=== PATIENT | female | born 1955 | race Caucasian/White ===

== ENCOUNTER 2016-11-17 13:22 | Inpatient (IN) | payer OTHER ==
--- NOTE | 2016-11-17 13:59 | EDPRACDOC ---
- History of Present Illness HPI: PT PRESENTS AFTER BEING FOUND TO HAVE HYPOTENSION WITH PALLOR AT [facility]. <Pramod Cheney - Last Filed: 11/17/16 13:40> <Trell Gao - Last Filed: 11/17/16 22:13> - General Information Stated Complaint: HYPOTENSION Time Seen by Provider: 11/17/16 13:25 Home Medications: Home Medications Sertraline HCl [Zoloft] 150 mg PO DAILY 10/28/15 Amlodipine [Norvasc] 10 mg PO DAILY #30 tab 01/30/16 Carvedilol [Coreg] 25 mg PO BID 05/16/16 Bupropion HCl [Wellbutrin] 75 mg PO DAILY 06/25/16 Cholecalciferol (Vitamin D3) [Vitamin D3] 2,000 unit PO DAILY 06/25/16 Cyanocobalamin (Vitamin B-12) [Vitamin B-12] 500 mcg SL DAILY 06/25/16 Haloperidol [Haldol] 0.5 mg PO TID PRN 06/25/16 Levothyroxine [Synthroid, Levoxyl] 100 mcg PO DAILY 06/25/16 Isosorbide Mononitrate [Isosorbide Mononitrate ER] 120 mg PO DAILY 07/26/16 PEG-Electrolytes (Miralax) [Miralax] 17 gm PO DAILY #1 each 07/28/16 Albuterol Sulfate [Ventolin Hfa] 2 puff INH QID PRN 08/16/16 Atorvastatin Calcium [Lipitor] 20 mg PO QHS 08/16/16 Furosemide 20 mg PO QAM 08/16/16 Aspirin [Aspirin EC] 81 mg PO DAILY 08/27/16 Omeprazole 40 mg PO BID 08/27/16 Acetaminophen [Mapap] 650 mg PO Q6H PRN 10/26/16 Exenatide Microspheres [Bydureon Pen] 2 mg SQ WEEKLY 10/26/16 Divalproex Sodium [Depakote] 125 mg PO BID 11/17/16 Docusate-Senna Concentrate [Senokot S or Joselyn Colace] 2 each PO HS 11/17/16 Ferrous Fumarate [Ferrocite] 324 mg PO DAILY 11/17/16 Lisinopril [Prinivil] 5 mg PO DAILY 11/17/16 Allergies/Adverse Reactions: Allergies Allergy/AdvReac Type Severity Reaction Status Date / Time morphine Allergy Difficulty Verified 11/17/16 14:26 Breathing ondansetron HCl Allergy Unknown Verified 11/17/16 14:26 [From Zofran (as hydrochloride)] Penicillins Allergy Unknown/See Verified 11/17/16 14:26 Comments Sulfa (Sulfonamide Allergy Unknown Verified 11/17/16 14:26 Antibiotics) sulfamethoxazole Allergy Unknown/See Verified 11/17/16 14:26 [From Bactrim] Comments trimethoprim [From Bactrim] Allergy Unknown/See Verified 11/17/16 14:26 Comments ED Past Medical History - History Reviewed Yes Nurses notes reviewed and agree except as marked - Patient Medical History Neurological History: Reports: Dementia. Denies: Epilepsy Cardiac History: Reports: Coronary Artery Disease, Hypertension, Congestive Heart Failure (Ejection fraction on last echocardiogram September 2015 30%), Cardiac Catheterization, Hypercholesterolemia, Internal Defibrillator (AICD placed for cardiomyopathy and ejection fraction of 30), Pacemaker (AICD implanted due to CHF/cardiomyopathy.), Cardiomyopathy (Congestive cardiomyopathy requiring AICD placement), Valvular Heart Disease Respiratory History: Reports: COPD, Pneumonia GI/ History: Reports: Renal Disease (CKD-3), Gastroesophageal Reflux, Ulcer ( jejeunal ulcer), Diverticulosis (Suspected but unable to pull up her old CT of abdomen Neil), Pancreatitis Musculoskeletal History: Reports: Arthritis, Osteoarthritis Psychological History: Reports: Anxiety. Denies: Depression, Substance Use Disorder Systemic History: Reports: Cancer (fallopian tube malignancy), Anemia, Diabetes , Hypothyroidism Surgical History: Reports: Hysterectomy, Cardiac Catheterization, Tonsillectomy/ Adnoidectomy (1967), Other (AICD) Date of Last Chemotherapy Date: Sep 2010 - Family Medical History Reports: Hypertension (father), Diabetes (mother), Cancer (sister - cervical ca) , Cardiac Disorders (father-CHF, sister- CAD, mother- AAA). Denies: Stroke - Social Medical History Smoking Status: Light tobacco smoker (less than 5/day) Social History: Denies: Substance Use Disorder Lives In: Home <Pramod Cheney - Last Filed: 11/17/16 13:40> EDM Review of Systems - Review of Systems ROS Negative Except as Marked: Yes All systems reviewed and were negative except as marked Constitutional: Fatigue, Weakness. negative: Fever Respiratory: Shortness of Breath. negative: Hemoptysis Cardiovascular: negative: Chest Pain Gastrointestinal: negative: Diarrhea, Melena, Nausea, Pain, Vomiting Genitourinary: negative: Hematuria <Pramod Cheney - Last Filed: 11/17/16 13:40> - Physical Exam Constitutional: Alert Oriented to: Time, Person, Place Last recorded Vital Signs: Oxygen Pulse Oxygen Saturation O2 Device Oxygen Flow Rate Fraction of Inspired Oxygen ( FIO2) - HEENT Head: negative: Deformity, Laceration Eye Exam: Pale Conjunctiva. negative: Conjunctival Injection Nose: negative: Congestion, Discharge Neck: negative: Limited ROM - Respiratory/Cardiovascular Respiratory: Normal - CTA. negative: Accessory Muscle Use, Diminished, Tachypnea Cardiovascular: negative: Bradycardia, Tachycardia, Irregular - GI Auscultation: Normal Palpation: Normal Tenderness: Non tender - Musculoskeletal Extremities: Radial Pulse (PALPABLE) - Integumentary Skin: Warm, Dry. negative: Rash - Neurologic Memory Impaired: Normal Motor Function: Normal Mood Description: Anxious Thought: Coherent Perception: Normal <Pramod Cheney - Last Filed: 11/17/16 13:40> - Physical Exam Last recorded Vital Signs: Last Vital Signs Temp 97.5 F 11/17/16 22:08 Pulse 73 11/17/16 22:08 Resp 18 11/17/16 22:08 BP 172/72 11/17/16 22:08 Pulse Ox 99 11/17/16 22:08 Oxygen Pulse Oxygen Saturation 97 O2 Device Room Air Oxygen Flow Rate Fraction of Inspired Oxygen ( FIO2) <Trell Gao - Last Filed: 11/17/16 22:13> - EKG EKG #1 EKG Time: 13:57 -: Yes EKG interpreted by me Rate: bpm: 69 Rhythm: NSR Block: None ST: Nonsp <Pramod Cheney - Last Filed: 11/17/16 13:40> - Results 11/17/16 18:00 11/17/16 14:10 WBC 5.5 xk/uL (3.8-10.8) 11/17/16 14:10 RBC 1.54 xM/uL (4.20-5.40) L 11/17/16 14:10 Hgb 5.7 g/dL (12.0-16.0) L* D 11/17/16 18:00 Hct 17.0 % (36-47) L 11/17/16 18:00 MCV 93 fL (81-99) 11/17/16 14:10 MCH 30.5 pg (27-32) 11/17/16 14:10 MCHC 32.6 g/dl (33-36) L 11/17/16 14:10 RDW 16.1 % (11.5-14.5) H 11/17/16 14:10 Plt Count 182 xk/uL (130-400) 11/17/16 14:10 MPV 7.2 fL (7.4-10.4) L 11/17/16 14:10 Neut % (Auto) Cancelled 11/17/16 14:10 Lymph % (Auto) Cancelled 11/17/16 14:10 Weber % (Auto) Cancelled 11/17/16 14:10 Eos % (Auto) Cancelled 11/17/16 14:10 Baso % (Auto) Cancelled 11/17/16 14:10 Absolute Neuts (auto) Cancelled 11/17/16 14:10 Absolute Lymphs (auto) Cancelled 11/17/16 14:10 Seg Neuts % (Manual) 75 % (45-76) 11/17/16 14:10 Band Neutrophils % 0 % (0-5) 11/17/16 14:10 Lymphocytes % (Manual) 22 % (17-44) 11/17/16 14:10 Monocytes % (Manual) 1 % (0-10) 11/17/16 14:10 Eosinophils % (Manual) 1 % (0-5) 11/17/16 14:10 Basophils % (Manual) 1 % (0-2) 11/17/16 14:10 Absolute Neutrophils 4.13 xk/uL (1.7-8.2) 11/17/16 14:10 Absolute Lymphocytes 1.21 xk/uL (0.65-4.75) 11/17/16 14:10 Platelet Estimate Norm (NORMAL) 11/17/16 14:10 RBC Morphology 1+ aniso 11/17/16 14:10 PT 10.9 SEC (9.2-11.2) 11/17/16 14:10 INR 1.1 11/17/16 14:10 APTT 22.6 SEC (22-35) 11/17/16 14:10 Sodium 137 mEq/L (137-146) 11/17/16 14:10 Potassium 4.1 mEq/L (3.5-5.1) 11/17/16 14:10 Chloride 110 mEq/L (98-107) H 11/17/16 14:10 Carbon Dioxide 21 mMOL/L (22-33) L 11/17/16 14:10 Anion Gap 10 mEq/L (8-16) 11/17/16 14:10 BUN 60 MG/DL (7-17) H 11/17/16 14:10 Creatinine 2.90 MG/DL (0.52-1.04) H 11/17/16 14:10 Estimated GFR (MDRD) 16 mL/min (>=60) L 11/17/16 14:10 Glucose 119 MG/DL (70-99) H 11/17/16 14:10 POC Capillary Glucose 110 MG/DL (70-99) H 11/17/16 20:22 Calculated Osmolality 282 MOs/Kg (270-290) 11/17/16 14:10 Lactic Acid 1.3 mEq/L (0.7-2.1) 11/17/16 14:10 Calcium 8.1 MG/DL (8.4-10.2) L 11/17/16 14:10 Corrected Calcium 9.6 MG/DL (8.4-10.2) 11/17/16 14:10 Total Bilirubin 0.2 MG/DL (0.2-1.3) 11/17/16 14:10 AST 42 IU/L (14-36) H 11/17/16 14:10 ALT 39 IU/L (9-52) 11/17/16 14:10 Alkaline Phosphatase 69 IU/L (55-165) 11/17/16 14:10 Creatine Kinase 399 IU/L (30-134) H 11/17/16 14:10 CK-MB (CK-2) 6.6 ng/mL (0-4.5) H 11/17/16 14:10 Troponin I 0.01 ng/mL (<.04) 11/17/16 20:40 Total Protein 5.3 G/DL (6.3-8.2) L 11/17/16 14:10 Albumin 2.5 G/DL (3.5-5.0) L 11/17/16 14:10 Urine Color Yellow 11/17/16 14:42 Urine Clarity Clear 11/17/16 14:42 Urine pH 5.0 (5.0-8.0) 11/17/16 14:42 Ur Specific [place] 1.005 (1.003-1.035) 11/17/16 14:42 Urine Protein 3+ (NEG/TRACE) H 11/17/16 14:42 Urine Glucose (UA) 1+ (NEGATIVE) H 11/17/16 14:42 Urine Ketones Neg (NEGATIVE) 11/17/16 14:42 Urine Occult Blood 1+ (NEG/TRACE) H 11/17/16 14:42 Urine Nitrite Neg (NEGATIVE) 11/17/16 14:42 Urine Bilirubin Neg (NEGATIVE) 11/17/16 14:42 Urine Urobilinogen <2.0 MG/DL (0-1) 11/17/16 14:42 Ur Leukocyte Esterase Neg (NEGATIVE) 11/17/16 14:42 Urine RBC 0-2 (0-5) 11/17/16 14:42 Urine WBC 2-5 (0-5) 11/17/16 14:42 Ur Epithelial Cells 1+ 11/17/16 14:42 Urine Bacteria Few (NEG/FEW) 11/17/16 14:42 Urine Mucus Occ (NEG/OCC) 11/17/16 14:42 Blood Type A POSITIVE 11/17/16 15:00 Antibody Screen Negative 11/17/16 15:00 Crossmatch See Detail 11/17/16 15:00 Lab Results 11/17/16 11/17/16 11/17/16 15:00 14:42 14:10 WBC RBC Hgb Hct MCV MCH MCHC RDW Plt Count MPV Neut % (Auto) Lymph % (Auto) Weber % (Auto) Eos % (Auto) Baso % (Auto) Absolute Neuts (auto) Absolute Lymphs (auto) Seg Neuts % (Manual) Band Neutrophils % Lymphocytes % (Manual) Monocytes % (Manual) Eosinophils % (Manual) Basophils % (Manual) Absolute Neutrophils Absolute Lymphocytes Platelet Estimate RBC Morphology PT 10.9 INR 1.1 APTT 22.6 Sodium Potassium Chloride Carbon Dioxide Anion Gap BUN Creatinine Estimated GFR (MDRD) Glucose Calculated Osmolality Lactic Acid Calcium Corrected Calcium Total Bilirubin AST ALT Alkaline Phosphatase Creatine Kinase CK-MB (CK-2) Troponin I Total Protein Albumin Urine Color Yellow Urine Clarity Clear Urine pH 5.0 Ur Specific [place] 1.005 Urine Protein 3+ H Urine Glucose (UA) 1+ H Urine Ketones Neg Urine Occult Blood 1+ H Urine Nitrite Neg Urine Bilirubin Neg Urine Urobilinogen <2.0 Ur Leukocyte Esterase Neg Urine RBC 0-2 Urine WBC 2-5 Ur Epithelial Cells 1+ Urine Bacteria Few Urine Mucus Occ Blood Type A POSITIVE Antibody Screen Negative Crossmatch See Detail 11/17/16 11/17/16 11/17/16 14:10 14:10 14:10 WBC 5.5 RBC 1.54 L Hgb 4.7 L* Hct 14.4 L MCV 93 MCH 30.5 MCHC 32.6 L RDW 16.1 H Plt Count 182 MPV 7.2 L Neut % (Auto) Cancelled Lymph % (Auto) Cancelled Weber % (Auto) Cancelled Eos % (Auto) Cancelled Baso % (Auto) Cancelled Absolute Neuts (auto) Cancelled Absolute Lymphs (auto) Cancelled Seg Neuts % (Manual) 75 Band Neutrophils % 0 Lymphocytes % (Manual) 22 Monocytes % (Manual) 1 Eosinophils % (Manual) 1 Basophils % (Manual) 1 Absolute Neutrophils 4.13 Absolute Lymphocytes 1.21 Platelet Estimate Norm RBC Morphology 1+ aniso PT INR APTT Sodium 137 Potassium 4.1 Chloride 110 H Carbon Dioxide 21 L Anion Gap 10 BUN 60 H Creatinine 2.90 H Estimated GFR (MDRD) 16 L Glucose 119 H Calculated Osmolality 282 Lactic Acid 1.3 Calcium 8.1 L Corrected Calcium 9.6 Total Bilirubin 0.2 AST 42 H ALT 39 Alkaline Phosphatase 69 Creatine Kinase 399 H CK-MB (CK-2) 6.6 H Troponin I 0.02 Total Protein 5.3 L Albumin 2.5 L Urine Color Urine Clarity Urine pH Ur Specific [place] Urine Protein Urine Glucose (UA) Urine Ketones Urine Occult Blood Urine Nitrite Urine Bilirubin Urine Urobilinogen Ur Leukocyte Esterase Urine RBC Urine WBC Ur Epithelial Cells Urine Bacteria Urine Mucus Blood Type Antibody Screen Crossmatch <Trell Gao - Last Filed: 11/17/16 22:13> <Parmod Cheney - Last Filed: 11/17/16 13:40> - Departure Disposition: Admit IP To This Hospital <Trell Gao - Last Filed: 11/17/16 22:13> - Departure Condition: Fair Final Diagnosis: GI bleed Qualifiers: GI bleed type/associated pathology: unspecified gastrointestinal hemorrhage type Qualified Code(s): K92.2 - Gastrointestinal hemorrhage, unspecified
[2016-11-17 14:23] LABS: MPV 7.2 fL (7.4-10.4)
[2016-11-17 14:34] LABS: BLOOD UREA NITROGEN 60 MG/DL (7-17); CALC CORRECTED 9.6 MG/DL (8.4-10.2); CALCIUM 8.1 MG/DL (8.4-10.2); CALCULATED OSMOLALITY 282 MOs/Kg (270-290); CHLORIDE 110 mEq/L (98-107); CPK TOTAL WITH POSSIBLE MB 399 IU/L (30-134); GLUCOSE 119 MG/DL (70-99); PARTIAL THROMB. TIME 22.6 SEC (22-35); PT-INR 1.1; SODIUM LEVEL 137 mEq/L (137-146); TOTAL PROTEIN 5.3 G/DL (6.3-8.2)
[2016-11-17 14:49] LABS: CPKMB 6.6 ng/mL (0-4.5)
--- NOTE | 2016-11-17 14:50 | DIRPT ---
CLINICAL DATA: Hypotension. EXAM: PORTABLE CHEST 1 VIEW COMPARISON: 08/27/2016 FINDINGS: AICD in place. Heart size and vascularity are normal. Lungs are clear. No osseous abnormality. IMPRESSION: No active disease. Electronically Signed By: Rambo Cedillo M.D. On: 11/17/2016 14:47
[2016-11-17 15:11] LABS: LEUKOCYTES/URINE NEG (NEGATIVE); NITRITE/URINE NEG (NEGATIVE); RBC/URINE 0-2 (0-5); URINE OCCULT BLOOD 1+ (NEG/TRACE)
[2016-11-17 15:41] LABS: SEG NEUTROPHIL 75 % (45-76); TOTAL CELL COUNT 100
[2016-11-17] MEDS ORDERED: ACETAMINOPHEN 325 MG/TAB TABLET PO PRN ×2 (17:06→17:12)
[2016-11-17] MEDS ORDERED: Aluminum;Magnesium;Simethicone 30 ML UDC PO PRN (17:06)
[2016-11-17] MEDS ORDERED: MAGNESIUM HYDROXIDE 30 ML BOTTLE PO PRN (17:06)
[2016-11-17] MEDS ORDERED: SODIUM CHLORIDE 0.9% 3 ML FLUSH FLUSH PRN (17:06)
[2016-11-17] MEDS ORDERED: PROMETHAZINE 25 MG/ML VIAL IV PRN (17:06)
[2016-11-17] MEDS ORDERED: HALOPERIDOL 0.5 MG TAB PO PRN (17:12)
[2016-11-17] MEDS ORDERED: ALBUTEROL 6.7 GM MDI INH PRN (17:12)
[2016-11-17] MEDS ORDERED: EXENATIDE MICROSPHERES 2 MG SQ SCH (17:15)
--- NOTE | 2016-11-17 17:17 | HISTPHYS ---
- Chief Complaint weakness; confusion; pt has a recent hx of blood transfusions; + fatigue - Medical History Cardiac History: Reports: Cardiac Catheterization Psychological History: Denies: Depression - Surgical History Reports: Hysterectomy, Cardiac Catheterization, Tonsillectomy/Adnoidectomy (1967 ), Other (AICD) - Medictions/Allergies Allergies morphine Allergy (Verified 11/17/16 14:26) Difficulty Breathing ondansetron HCl [From Zofran (as hydrochloride)] Allergy (Verified 11/17/16 14: 26) Unknown Penicillins Allergy (Verified 11/17/16 14:26) Unknown/See Comments Sulfa (Sulfonamide Antibiotics) Allergy (Verified 11/17/16 14:26) Unknown sulfamethoxazole [From Bactrim] Allergy (Verified 11/17/16 14:26) Unknown/See Comments trimethoprim [From Bactrim] Allergy (Verified 11/17/16 14:26) Unknown/See Comments Home Medications Sertraline HCl [Zoloft] 150 mg PO DAILY 10/28/15 Amlodipine [Norvasc] 10 mg PO DAILY #30 tab 01/30/16 Carvedilol [Coreg] 25 mg PO BID 05/16/16 Bupropion HCl [Wellbutrin] 75 mg PO DAILY 06/25/16 Cholecalciferol (Vitamin D3) [Vitamin D3] 2,000 unit PO DAILY 06/25/16 Cyanocobalamin (Vitamin B-12) [Vitamin B-12] 500 mcg SL DAILY 06/25/16 Haloperidol [Haldol] 0.5 mg PO TID PRN 06/25/16 Levothyroxine [Synthroid, Levoxyl] 100 mcg PO DAILY 06/25/16 Isosorbide Mononitrate [Isosorbide Mononitrate ER] 120 mg PO DAILY 07/26/16 PEG-Electrolytes (Miralax) [Miralax] 17 gm PO DAILY #1 each 07/28/16 Albuterol Sulfate [Ventolin Hfa] 2 puff INH QID PRN 08/16/16 Atorvastatin Calcium [Lipitor] 20 mg PO QHS 08/16/16 Furosemide 20 mg PO QAM 08/16/16 Aspirin [Aspirin EC] 81 mg PO DAILY 08/27/16 Omeprazole 40 mg PO BID 08/27/16 Acetaminophen [Mapap] 650 mg PO Q6H PRN 10/26/16 Exenatide Microspheres [Bydureon Pen] 2 mg SQ WEEKLY 10/26/16 Divalproex Sodium [Depakote] 125 mg PO BID 11/17/16 Docusate-Senna Concentrate [Senokot S or Joselyn Colace] 2 each PO HS 11/17/16 Ferrous Fumarate [Ferrocite] 324 mg PO DAILY 11/17/16 Lisinopril [Prinivil] 5 mg PO DAILY 11/17/16 - Family History Reports: Hypertension (father), Diabetes (mother), Cancer (sister - cervical ca) , Cardiac Disorders (father-CHF, sister- CAD, mother- AAA). Denies: Stroke - Social History Smoking Status: Never smoker - Physical Exam Vital Signs: Initial Vitals Temperature 97.5 F 11/17/16 13:40 Pulse Rate 60 11/17/16 13:40 Respiratory Rate 18 11/17/16 13:40 Blood Pressure 142/66 11/17/16 13:40 Pulse Oxygen Saturation 99 11/17/16 13:40 - Focused CV Perfusion Exam Vital Signs: Last Vital Signs Temp 97.7 F 11/17/16 16:31 Pulse 72 11/17/16 16:31 Resp 18 11/17/16 16:31 BP 148/66 11/17/16 16:31 Pulse Ox 97 11/17/16 16:31
--- NOTE | 2016-11-17 17:18 | HISTPHYS ---
- Chief Complaint weakness; confusion; pt has a recent hx of blood transfusions; + fatigue - History of Present Illness Patient presents the emergency department after brief being found hypotensive and pale at [facility]. She has a long history arterial venous malformations and requires frequent blood transfusions. Up until today she has received 19 at units of blood since July 2016. She will require 5 units today for a total of 24 units since July 2016. - Medical History Cardiac History: Reports: Cardiac Catheterization Respiratory History: Reports: No Significant History GI/ History: Reports: No Significant History, PMH GI Yes/No Other (frequent gi bleeding requiring transfusions) Musculoskeletal History: Reports: No Significant History Systemic History: Reports: Anemia Neurological History: Reports: No Significant History Psychological History: Denies: Depression - Surgical History Reports: Hysterectomy, Cardiac Catheterization, Tonsillectomy/Adnoidectomy (1966 ), Other () - Medictions/Allergies Allergies morphine Allergy (Verified 11/17/16 14:26) Difficulty Breathing ondansetron HCl [From Zofran (as hydrochloride)] Allergy (Verified 11/17/16 14: 26) Unknown Penicillins Allergy (Verified 11/17/16 14:26) Unknown/See Comments Sulfa (Sulfonamide Antibiotics) Allergy (Verified 11/17/16 14:26) Unknown sulfamethoxazole [From Bactrim] Allergy (Verified 11/17/16 14:26) Unknown/See Comments trimethoprim [From Bactrim] Allergy (Verified 11/17/16 14:26) Unknown/See Comments Current Medication List: Reviewed Home Medications Sertraline HCl [Zoloft] 150 mg PO DAILY 10/28/15 Amlodipine [Norvasc] 10 mg PO DAILY #30 tab 01/30/16 Carvedilol [Coreg] 25 mg PO BID 05/16/16 Bupropion HCl [Wellbutrin] 75 mg PO DAILY 06/25/16 Cholecalciferol (Vitamin D3) [Vitamin D3] 2,000 unit PO DAILY 06/25/16 Cyanocobalamin (Vitamin B-12) [Vitamin B-12] 500 mcg SL DAILY 06/25/16 Haloperidol [Haldol] 0.5 mg PO TID PRN 06/25/16 Levothyroxine [Synthroid, Levoxyl] 100 mcg PO DAILY 06/25/16 Isosorbide Mononitrate [Isosorbide Mononitrate ER] 120 mg PO DAILY 07/26/16 PEG-Electrolytes (Miralax) [Miralax] 17 gm PO DAILY #1 each 07/28/16 Albuterol Sulfate [Ventolin Hfa] 2 puff INH QID PRN 08/16/16 Atorvastatin Calcium [Lipitor] 20 mg PO QHS 08/16/16 Furosemide 20 mg PO QAM 08/16/16 Aspirin [Aspirin EC] 81 mg PO DAILY 08/27/16 Omeprazole 40 mg PO BID 08/27/16 Acetaminophen [Mapap] 650 mg PO Q6H PRN 10/26/16 Exenatide Microspheres [Bydureon Pen] 2 mg SQ WEEKLY 10/26/16 Divalproex Sodium [Depakote] 125 mg PO BID 11/17/16 Docusate-Senna Concentrate [Senokot S or Joselyn Colace] 2 each PO HS 11/17/16 Ferrous Fumarate [Ferrocite] 324 mg PO DAILY 11/17/16 Lisinopril [Prinivil] 5 mg PO DAILY 11/17/16 - Family History Reports: Hypertension (father), Diabetes (mother), Cancer (sister - cervical ca) , Cardiac Disorders (father-CHF, sister- CAD, mother- AAA). Denies: Stroke - Social History Travel Outside of [place] in the Last 3 Months?: No Smoking Status: Never smoker Social History: Denies: Alcohol Use, Substance Use Disorder - Review of Systems Constitutional: Fatigue, Weakness Eyes: No Symptoms Reported (No blurry vision, visual changes, eye pain, or eye redness.) Ears: No Symptoms Reported (No ear pain or discharge) Nose: No Symptoms Reported (No nasal discharge/congestion or bleeding) Respiratory: No Symptoms Reported (No cough, wheezing, or shortness of breath.) Cardiovascular: No Symptoms Reported (No chest pain or palpitations.) Gastrointestinal: Hematochezia Genitourinary: No Symptoms Reported (No dysuria or hematuria.) Neurological: No Symptoms Reported (No headache, dizziness, seizures, or focal weakness.) Musculoskeletal:: No Symptoms Reported Integumentary: No Symptoms Reported (no rashes or lesions) Allergic/Immunologic: No Symptoms Reported (no rashes or lesions) Hematologic: Anemia Endocrine: No Symptoms Reported (No thyroid issues, polyuria, or polydipsia.) Psychiatric: No Symptoms Reported (Fully oriented, with normal and appropriate affect.) - Physical Exam Vital Signs: Initial Vitals Temperature 97.5 F 11/17/16 13:40 Pulse Rate 60 11/17/16 13:40 Respiratory Rate 18 11/17/16 13:40 Blood Pressure 142/66 11/17/16 13:40 Pulse Oxygen Saturation 99 11/17/16 13:40 Constitutional: Alert. negative: Well nourished, Well appearing Oriented to: Time, Person, Place - HEENT Head: Normal (normocephalic, atraumatic.), Other (No cervical lymphadenopathy. No supraclavicular lymphadenopathy. Neck: No palpable mass, supple , trachea midline.) Eye: Pale Conjunctiva Oropharynx: Normal (Pharynx: Moist without exudate,Gums-no swelling, No oropharyngeal lesions or erythema, Mucous membranes are dry.) Nose: No Symptoms Reported (septum midline, Nares patent, without discharge or bleeding.) Respiratory: Normal - CTA (Clear to auscultation bilaterally. No wheezing, rales , rhonchi. Chest wall movements are symmetric. No use of accessory muscles to breathe.) Cardiovascular: Normal (RRR , Normal S1, S2. No murmurs, rubs, or gallops. PMI non-displaced. Carotids: no carotid bruits. No bradycardia or tachycardia. DP pulses 2+ bilaterally.) - GI Auscultation: Normal (normal active sounds) Palpation: Normal (Soft,non distended,nontender. No hepatosplenomegaly.) Tenderness: Non tender (No rebound or guarding) Triplett's Sign: Negative - Musculoskeletal Back: Normal (Non-Tender) Extremities: Normal (Normal tone, DP pulses 2+ bilaterally, No cyanosis or edema bilaterally, FROM bilaterally.) - Integumentary Skin: Pale Lymphatics: Normal (No cervical lymphadenopathy. No supraclavicular lymphadenopathy.) - Neurologic Memory Impaired: Normal Motor Function: Normal (Motor 5/5 throughout.Normal tone, Pulses 2+ No cyanosis or edema, FROM) Cranial Nerve: Normal (CN II-XII intact sensation, strength 5/5) Cerebellar: Normal (Babinski: toes downgoing bilaterally. Intact Finger to nose. Sensory grossly intact to light touch. Intact rapid alternating movements bilaterally. No pronator drift.) Mood Description: Normal (Fully oriented. Normal and appropriate affect.) Perception: Normal (Normal and appropriate affect.) - Focused CV Perfusion Exam Vital Signs: Last Vital Signs Temp 97.7 F 11/17/16 16:31 Pulse 72 11/17/16 16:31 Resp 18 11/17/16 16:31 BP 148/66 11/17/16 16:31 Pulse Ox 97 11/17/16 16:31 - Lab Results Laboratory Results - last 24 hr 11/17/16 11/17/16 11/17/16 14:10 14:10 14:10 WBC 5.5 RBC 1.54 L Hgb 4.7 L* Hct 14.4 L MCV 93 MCH 30.5 MCHC 32.6 L RDW 16.1 H Plt Count 182 MPV 7.2 L Neut % (Auto) Cancelled Lymph % (Auto) Cancelled [place] % (Auto) Cancelled Eos % (Auto) Cancelled Baso % (Auto) Cancelled Absolute Neuts (auto) Cancelled Absolute Lymphs (auto) Cancelled Seg Neuts % (Manual) 75 Band Neutrophils % 0 Lymphocytes % (Manual) 22 Monocytes % (Manual) 1 Eosinophils % (Manual) 1 Basophils % (Manual) 1 Absolute Neutrophils 4.13 Absolute Lymphocytes 1.21 Platelet Estimate Norm RBC Morphology 1+ aniso PT INR APTT Sodium 137 Potassium 4.1 Chloride 110 H Carbon Dioxide 21 L Anion Gap 10 BUN 60 H Creatinine 2.90 H Estimated GFR (MDRD) 16 L Glucose 119 H Calculated Osmolality 282 Lactic Acid 1.3 Calcium 8.1 L Corrected Calcium 9.6 Total Bilirubin 0.2 AST 42 H ALT 39 Alkaline Phosphatase 69 Creatine Kinase 399 H CK-MB (CK-2) 6.6 H Troponin I 0.02 Total Protein 5.3 L Albumin 2.5 L Urine Color Urine Clarity Urine pH Ur Specific [place] Urine Protein Urine Glucose (UA) Urine Ketones Urine Occult Blood Urine Nitrite Urine Bilirubin Urine Urobilinogen Ur Leukocyte Esterase Urine RBC Urine WBC Ur Epithelial Cells Urine Bacteria Urine Mucus Blood Type Antibody Screen Crossmatch 11/17/16 11/17/16 11/17/16 14:10 14:42 15:00 WBC RBC Hgb Hct MCV MCH MCHC RDW Plt Count MPV Neut % (Auto) Lymph % (Auto) [place] % (Auto) Eos % (Auto) Baso % (Auto) Absolute Neuts (auto) Absolute Lymphs (auto) Seg Neuts % (Manual) Band Neutrophils % Lymphocytes % (Manual) Monocytes % (Manual) Eosinophils % (Manual) Basophils % (Manual) Absolute Neutrophils Absolute Lymphocytes Platelet Estimate RBC Morphology PT 10.9 INR 1.1 APTT 22.6 Sodium Potassium Chloride Carbon Dioxide Anion Gap BUN Creatinine Estimated GFR (MDRD) Glucose Calculated Osmolality Lactic Acid Calcium Corrected Calcium Total Bilirubin AST ALT Alkaline Phosphatase Creatine Kinase CK-MB (CK-2) Troponin I Total Protein Albumin Urine Color Yellow Urine Clarity Clear Urine pH 5.0 Ur Specific [place] 1.005 Urine Protein 3+ H Urine Glucose (UA) 1+ H Urine Ketones Neg Urine Occult Blood 1+ H Urine Nitrite Neg Urine Bilirubin Neg Urine Urobilinogen <2.0 Ur Leukocyte Esterase Neg Urine RBC 0-2 Urine WBC 2-5 Ur Epithelial Cells 1+ Urine Bacteria Few Urine Mucus Occ Blood Type A POSITIVE Antibody Screen Negative Crossmatch See Detail - Diagnostic Findings PORTABLE CHEST 1 VIEW COMPARISON: 08/27/2016 FINDINGS: AICD in place. Heart size and vascularity are normal. Lungs are clear. No osseous abnormality. IMPRESSION: No active disease. Electronically Signed By: Rambo Cedillo M.D. On: 11/17/2016 14:47 - Assessment (1) Small bowel bleed requiring more than 4 units of blood in 24 hours, ICU, or surgery K92.2 - GASTROINTESTINAL HEMORRHAGE, UNSPECIFIED Acute Present on Admission: Yes Patient presents with markedly low hemoglobin and a history of congestive heart failure although her heart failure is currently well compensated she will be Um transfused 5 units of packed red blood cell and will get Lasix with each unit. Will monitor her renal function closely she does have a creatinine of 2.9 with chronic renal failure. I had an extensive discussion with Dr. Martinez regarding the patient's care in August he phoned [facility] and requested to schedule her for an appointment at [facility]. [facility] said that they would send the patient to [facility] themselves. The patient never did go to [facility]. She require specialty care available only there. He has done in upper and lower endoscopy in August and there were no findings. (2) Anemia due to acute blood loss D62 - ACUTE POSTHEMORRHAGIC ANEMIA Acute Present on Admission: Yes Patient to get 5 units of packed red blood cells today. Her hemoglobin is extremely low she feels very sick and she is extremely symptomatic. (3) Renal failure N19 - UNSPECIFIED KIDNEY FAILURE Chronic Present on Admission: Yes Patient with chronic renal failure which in part accounts for some of her anemia but not all of it. She remains heme-positive and having issues with her GI tract. In the past and has been surmised that she had arterial venous malformations but apparently that had never been proven. Attempts at outpatient evaluation at [facility] were made but the patient and needed referral from community health systems. Will check with community health systems tomorrow regarding progress of that. (4) Chronic illness R69 - ILLNESS, UNSPECIFIED Acute Present on Admission: Yes Patient wishes to be a full code this reverses her previous DNR status from January of 2016. - Plan Patient acutely and critically ill with dangerously low blood counts. Case Care Discussed with: Patient, Consultants, Nursing Staff Total Time: 85 minutes Critical Care: Yes Couseling Time (>50% in counseling/coordination): No
[2016-11-17] MEDS ORDERED: ACETAMINOPHEN 325 MG/TAB TABLET PO ONE (18:11)
[2016-11-17] MEDS ORDERED: Vaccine Screening Complete SCH (21:00)
[2016-11-17] MEDS: DIPHENHYDRAMINE 50 MG/ML VIAL IV SCH (22:01)
[2016-11-17] MEDS: FUROSEMIDE 20 MG/2 ML VIAL IV SCH (22:01)
[2016-11-17] MEDS: ATORVASTATIN 20 MG TAB PO SCH (22:02)
[2016-11-17] MEDS: DOCUSATE-SENNA CONCENTRATE TAB PO SCH (22:02)
[2016-11-17] MEDS: DIVALPROEX SODIUM 125 MG CAP PO SCH (22:02)
[2016-11-17] MEDS: CARVEDILOL 12.5 MG TAB PO SCH (22:02)
[2016-11-17] MEDS: SODIUM CHLORIDE 0.9% 3 ML FLUSH FLUSH SCH (22:15)
[2016-11-17] MEDS: ASCORBIC ACID 500 MG TAB PO SCH (22:25)
[2016-11-18] MEDS: DIPHENHYDRAMINE 50 MG/ML VIAL IV SCH ×3 (05:16→16:18)
[2016-11-18] MEDS: FUROSEMIDE 20 MG/2 ML VIAL IV SCH ×4 (05:17→20:34)
[2016-11-18] MEDS: SODIUM CHLORIDE 0.9% 3 ML FLUSH FLUSH SCH ×2 (05:17→17:52)
[2016-11-18] MEDS: PANTOPRAZOLE 40 MG TAB PO SCH ×2 (05:17→17:52)
[2016-11-18] MEDS: FERROUS SULFATE 324 MG TAB PO SCH ×3 (08:00→17:51)
[2016-11-18] MEDS: ASCORBIC ACID 500 MG TAB PO SCH ×3 (08:00→17:51)
[2016-11-18] MEDS: DIVALPROEX SODIUM 125 MG CAP PO SCH ×2 (08:02→19:49)
[2016-11-18] MEDS: ISOSORBIDE MONONITRATE 120 MG PO SCH (08:03)
[2016-11-18] MEDS: LEVOTHYROXINE 100 MCG (0.1 MG) TAB PO SCH (08:04)
[2016-11-18] MEDS: AMLODIPINE 10 MG TAB PO SCH (08:04)
[2016-11-18] MEDS: PEG-ELECTROLYTE 17 GM PACK PO SCH (08:04)
[2016-11-18] MEDS: LISINOPRIL 5 MG TAB PO SCH (08:05)
[2016-11-18] MEDS: CYANOCOBALAMIN (Vitamin B-12) 500 MCG TABLET PO SCH (08:05)
[2016-11-18] MEDS: CARVEDILOL 12.5 MG TAB PO SCH ×2 (08:05→19:49)
[2016-11-18] MEDS: CHOLECALCIFEROL 1000 UNITS TAB PO SCH (11:38)
--- NOTE | 2016-11-18 17:27 | GENMEDPROG ---
Subjective Note: Patient reports that she was sent to [place] for a double balloon endoscopy. I am requesting these records. She was told that her bleeding problem was solved. She then presented several times since that procedure to our facility with profound anemia. Her hemoglobin yesterday was 4.7. She is in the process of receiving 5 units of packed red blood cells Notes Reviewed: Yes Events from last night noted and discussed with Clinical Staff Current Medication List: Reviewed Currently: Reports: SOB, Other (Weakness and fatigue.). Denies: Fever/Chills, Ambulating DVT Prophylaxis: Yes - Physical Examination Vital Signs and I&O: Last Vital Signs Temp 97.8 F 11/18/16 16:55 Pulse 67 11/18/16 16:55 Resp 18 11/18/16 16:55 BP 182/88 H 11/18/16 16:55 Pulse Ox 98 11/18/16 16:55 Oxygen Pulse Oxygen Saturation 98 O2 Device Room Air Oxygen Flow Rate Fraction of Inspired Oxygen ( FIO2) Intake & Output 11/15/16 11/16/16 11/17/16 11/18/16 23:59 23:59 23:59 23:59 Intake Total 500 1597 Balance 500 1597 Patient's weight 93.44 kg 96.252 kg General: Alert, Oriented x3, No acute distress, Well appearing, Well nourished HEENT: Normal (Normocephalic, atraumatic;EOMI.Sclera white, Nares patent, without discharge or bleeding. No oropharyngeal lesions or erythema. Mucous membranes are dry.) Lymphatics: Normal (No cervical lymphadenopathy. No supraclavicular lymphadenopathy.) Respiratory: Normal - CTA (Clear to auscultation bilaterally. No wheezing, rales , rhonchi. Chest wall movements are symmetric. No use of accessory muscles to breathe.) Cardiovascular: Regular rate and rhythm (No bradycardia or tachycardia), Normal S1, No Gallops,Rubs/Murmurs, Normal S2, Good Pedal Pulses (DP pulses 2+ bilaterally) GI: Normal bowel sounds (normal active sounds), Soft (non-distended), Non tender , No hepatospenomegaly, No masses Extremities/Musculoskeletal: Normal pulses (DP pulses 2+ bilaterally) Skin: Warm,Dry and Intact, No rashes, No significant lesion Neurological: Strength at 5/5 X4 ext (Motor 5/5 throughout.), Normal tone, Cranial nerves 3-12 NL ( 2-12 grossly intact.) Lab/DI/Studies Reviewed: Abnormal Lab Results 11/17/16 11/17/16 11/17/16 15:00 18:00 20:22 Hgb 5.7 L* D Hct 17.0 L POC Capillary Glucose 110 H Crossmatch See Detail - Assessment (1) Small bowel bleed requiring more than 4 units of blood in 24 hours, ICU, or surgery Acute K92.2 - GASTROINTESTINAL HEMORRHAGE, UNSPECIFIED Comment/Plan: Obtain records from [place]. Continue transfusion of blood. Dr. Martinez is consulting. (2) Anemia due to acute blood loss Acute D62 - ACUTE POSTHEMORRHAGIC ANEMIA Comment/Plan: Patient to complete 5 units of packed red blood cells today. Her hemoglobin is extremely low she feels very sick and she is extremely symptomatic. (3) Renal failure Chronic N19 - UNSPECIFIED KIDNEY FAILURE Comment/Plan: Patient with chronic renal failure which in part accounts for some of her anemia but not all of it. She remains heme-positive and having issues with her GI tract. Based on patient 's discussion with me today I do believe she may have AVMs. Awaiting records from [place]. (4) Chronic illness Acute R69 - ILLNESS, UNSPECIFIED Comment/Plan: Patient wishes to be a full code this reverses her previous DNR status from January of 2016. - Plan Continue present care. Disposition Plan: May require longterm facility. Case Care Discussed with: Patient, Consultants, Nursing Staff, Resource Management, Rotary Envelope Machine Operator Education/Counseling Given To: Patient Education/Counseling Given Regarding: Diagnosis, Treatment, Prognosis, Follow Up , Disposition Plan Total Time: 45 minutes. Critical Care: Yes Couseling Time (>50% in counseling/coordination): No
[2016-11-18] MEDS: ATORVASTATIN 20 MG TAB PO SCH (19:49)
[2016-11-18] MEDS: DOCUSATE-SENNA CONCENTRATE TAB PO SCH (19:49)
[2016-11-18] MEDS: hydrALAZINE 20 MG/ML VIAL IV PRN (22:52)
[2016-11-19] MEDS ORDERED: METOPROLOL 5 MG/5 ML SDV IV ONE (00:46)
[2016-11-19] MEDS ORDERED: hydrALAZINE 20 MG/ML VIAL IV ONE (00:46)
[2016-11-19] MEDS ORDERED: FUROSEMIDE 40 MG/4 ML VIAL IV ONE (00:47)
[2016-11-19] MEDS: PANTOPRAZOLE 40 MG TAB PO SCH ×2 (04:39→17:21)
[2016-11-19] MEDS: SODIUM CHLORIDE 0.9% 3 ML FLUSH FLUSH SCH ×2 (04:40→17:21)
[2016-11-19] MEDS: DIVALPROEX SODIUM 125 MG CAP PO SCH ×2 (08:19→23:55)
[2016-11-19] MEDS: AMLODIPINE 10 MG TAB PO SCH (08:19)
[2016-11-19] MEDS: CARVEDILOL 12.5 MG TAB PO SCH (08:19)
[2016-11-19] MEDS: ASCORBIC ACID 500 MG TAB PO SCH ×3 (08:19→17:21)
[2016-11-19] MEDS: ISOSORBIDE MONONITRATE 120 MG PO SCH (08:19)
[2016-11-19] MEDS: CHOLECALCIFEROL 1000 UNITS TAB PO SCH (08:19)
[2016-11-19] MEDS: FERROUS SULFATE 324 MG TAB PO SCH ×3 (08:20→17:21)
[2016-11-19] MEDS: LISINOPRIL 5 MG TAB PO SCH (08:20)
[2016-11-19] MEDS: CYANOCOBALAMIN (Vitamin B-12) 500 MCG TABLET PO SCH (08:20)
[2016-11-19] MEDS: LEVOTHYROXINE 100 MCG (0.1 MG) TAB PO SCH (08:23)
[2016-11-19] MEDS: PEG-ELECTROLYTE 17 GM PACK PO SCH (08:29)
--- NOTE | 2016-11-19 16:27 | GENMEDPROG ---
Subjective Note: Patient in bed responsive follows commands, weak tired and fatigued. Denies any abdominal pain nausea vomiting. Notes Reviewed: Yes Events from last night noted and discussed with Clinical Staff Current Medication List: Reviewed Currently: Reports: SOB, Reflux Sx, Other (Weakness and fatigue.). Denies: Fever/Chills, Ambulating DVT Prophylaxis: Yes - Physical Examination Vital Signs and I&O: Last Vital Signs Temp 97.7 F 11/19/16 15:37 Pulse 67 11/19/16 15:37 Resp 18 11/19/16 15:37 BP 123/68 11/19/16 15:37 Pulse Ox 98 11/19/16 15:37 Oxygen Pulse Oxygen Saturation 98 O2 Device Room Air Oxygen Flow Rate Fraction of Inspired Oxygen ( FIO2) Intake & Output 11/16/16 11/17/16 11/18/16 11/19/16 23:59 23:59 23:59 23:59 Intake Total 500 2355 360 Output Total 2650 Balance 500 2355 -2290 Patient's weight 93.44 kg 96.252 kg 93.894 kg General: Alert, Oriented x3, No acute distress, Well appearing, Well nourished HEENT: Normal (Normocephalic, atraumatic;EOMI.Sclera white, Nares patent, without discharge or bleeding. No oropharyngeal lesions or erythema. Mucous membranes are dry.), PERRLA, EOMI, Anicteric Sclera Neck: Non-tender, Normal inspection, Limited range of motion Lymphatics: Normal (No cervical lymphadenopathy. No supraclavicular lymphadenopathy.) Respiratory: Normal - CTA (Clear to auscultation bilaterally. No wheezing, rales , rhonchi. Chest wall movements are symmetric. No use of accessory muscles to breathe.), Diminished, Rhonchi Cardiovascular: Regular rate and rhythm (No bradycardia or tachycardia), Normal S1, No Gallops,Rubs/Murmurs, Normal S2, Good Pedal Pulses (DP pulses 2+ bilaterally) GI: Normal bowel sounds (normal active sounds), Soft (non-distended), Non tender , No hepatospenomegaly, No masses Extremities/Musculoskeletal: Normal pulses (DP pulses 2+ bilaterally) Skin: Warm,Dry and Intact, No rashes, No significant lesion Neurological: Strength at 5/5 X4 ext (Motor 5/5 throughout.), Normal tone, Cranial nerves 3-12 NL ( 2-12 grossly intact.) Psych/Mental Status: Anxious Lab/DI/Studies Reviewed: Allergies morphine Allergy (Verified 11/17/16 14:26) Difficulty Breathing ondansetron HCl [From Zofran (as hydrochloride)] Allergy (Verified 11/17/16 14: 26) Unknown Penicillins Allergy (Verified 11/17/16 14:26) Unknown/See Comments Sulfa (Sulfonamide Antibiotics) Allergy (Verified 11/17/16 14:26) Unknown sulfamethoxazole [From Bactrim] Allergy (Verified 11/17/16 14:26) Unknown/See Comments trimethoprim [From Bactrim] Allergy (Verified 11/17/16 14:26) Unknown/See Comments 11/19/16 04:05 11/17/16 14:10 Abnormal Lab Results 11/17/16 11/18/16 11/19/16 15:00 21:30 04:05 Hgb 10.7 L D 10.9 L Hct 30.8 L 31.6 L Crossmatch See Detail Last Vital Signs Temp 97.7 F 11/19/16 15:37 Pulse 67 11/19/16 15:37 Resp 18 11/19/16 15:37 BP 123/68 11/19/16 15:37 Pulse Ox 98 11/19/16 15:37 - Assessment (1) GI bleed Acute K92.2 - GASTROINTESTINAL HEMORRHAGE, UNSPECIFIED Qualifiers: GI bleed type/associated pathology: angiodysplasia of stomach and duodenum Qualified Code(s): K31.811 - Angiodysplasia of stomach and duodenum with bleeding Comment/Plan: Continue PPI. Patient will need to follow up with a tertiary medical center (2) Acute on chronic renal failure Acute N17.9 - ACUTE KIDNEY FAILURE, UNSPECIFIED; N18.9 - CHRONIC KIDNEY DISEASE, UNSPECIFIED Comment/Plan: Monitor renal function maintain hydration avoid any nephrotoxins. (3) Anemia due to acute blood loss Acute D62 - ACUTE POSTHEMORRHAGIC ANEMIA Comment/Plan: Improved and stable after blood transfusion. (4) Hypertension Acute I10 - ESSENTIAL (PRIMARY) HYPERTENSION Qualifiers: Hypertension type: essential hypertension Qualified Code(s): I10 - Essential (primary) hypertension Comment/Plan: Stable on meds. (5) CHF (congestive heart failure) Chronic I50.9 - HEART FAILURE, UNSPECIFIED Qualifiers: Congestive heart failure type: systolic Congestive heart failure chronicity : chronic Qualified Code(s): I50.22 - Chronic systolic (congestive) heart failure Comment/Plan: compensated (6) Dyslipidemia Chronic E78.5 - HYPERLIPIDEMIA, UNSPECIFIED Comment/Plan: Continue Lipitor Case Care Discussed with: Patient, Nursing Staff, Tissue Packer Education/Counseling Given To: Patient Education/Counseling Given Regarding: Diagnosis, Treatment, Prognosis, Follow Up Total Time: 45 min . Critical Care: No Code: 94851 (12+)
[2016-11-20] MEDS: hydrALAZINE 20 MG/ML VIAL IV PRN (00:05)
[2016-11-20] MEDS: CARVEDILOL 12.5 MG TAB PO SCH ×2 (01:40→09:18)
[2016-11-20] MEDS: ATORVASTATIN 20 MG TAB PO SCH (01:41)
[2016-11-20] MEDS: DOCUSATE-SENNA CONCENTRATE TAB PO SCH (01:41)
[2016-11-20 03:55] VITALS: BMI 35.4
[2016-11-20 05:33] LABS: AUTOMATED BASOPHIL 0.9 % (0-2); AUTOMATED LYMPH 14.5 % (17-44); AUTOMATED MONOCYTE 12.6 % (3-10); MPV 7.9 fL (7.4-10.4)
[2016-11-20 05:47] LABS: BLOOD UREA NITROGEN 44 MG/DL (7-17); CALCIUM 7.9 MG/DL (8.4-10.2); CALCULATED OSMOLALITY 270 MOs/Kg (270-290); CHLORIDE 105 mEq/L (98-107); GLUCOSE 89 MG/DL (70-99); SODIUM LEVEL 135 mEq/L (137-146)
[2016-11-20] MEDS: PANTOPRAZOLE 40 MG TAB PO SCH (06:35)
[2016-11-20] MEDS: SODIUM CHLORIDE 0.9% 3 ML FLUSH FLUSH SCH (06:35)
[2016-11-20] MEDS: CYANOCOBALAMIN (Vitamin B-12) 500 MCG TABLET PO SCH (09:18)
[2016-11-20] MEDS: LEVOTHYROXINE 100 MCG (0.1 MG) TAB PO SCH (09:18)
[2016-11-20] MEDS: LISINOPRIL 5 MG TAB PO SCH (09:18)
[2016-11-20] MEDS: ISOSORBIDE MONONITRATE 120 MG PO SCH (09:18)
[2016-11-20] MEDS: ASCORBIC ACID 500 MG TAB PO SCH (09:18)
[2016-11-20] MEDS: DIVALPROEX SODIUM 125 MG CAP PO SCH (09:18)
[2016-11-20] MEDS: AMLODIPINE 10 MG TAB PO SCH (09:18)
[2016-11-20] MEDS: FERROUS SULFATE 324 MG TAB PO SCH (09:18)
[2016-11-20] MEDS: PEG-ELECTROLYTE 17 GM PACK PO SCH (09:38)
[2016-11-20 10:58] VITALS: BP 136/68; PULSE 76; TEMP 98.2
--- NOTE | 2016-11-20 11:27 | PCM.DCS92 ---
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 Patient will need to follow up with a tertiary medical center (2) Acute on chronic renal failure Chronic N17.9 - ACUTE KIDNEY FAILURE, UNSPECIFIED; N18.9 - CHRONIC KIDNEY DISEASE, UNSPECIFIED Present on Admission: Yes Comment: Monitor renal function maintain hydration avoid any nephrotoxins. (3) Anemia due to acute blood loss Acute D62 - ACUTE POSTHEMORRHAGIC ANEMIA Present on Admission: Yes Comment: Improved and stable after blood transfusion. (4) Hypertension Acute I10 - ESSENTIAL (PRIMARY) HYPERTENSION essential hypertension I10 - Essential (primary) hypertension Comment: Stable on meds. (5) CHF (congestive heart failure) Chronic I50.9 - HEART FAILURE, UNSPECIFIED Present on Admission: Yes systolic chronic I50.22 - Chronic systolic (congestive) heart failure Comment: compensated (6) Dyslipidemia Chronic E78.5 - HYPERLIPIDEMIA, UNSPECIFIED Present on Admission: Yes Comment: Continue Lipitor Discharge Disposition: Home Discharge Condition: Improved Cognitive Discharge Status: Unimpaired Fuctional Discharge Status: Walker Assistance Physician Follow up/Referrals: Otto Velasquez II, MD [Primary Care Provider] - Listed Time O2 Device: Room Air Diet at Discharge: Heart Healthy, Low Salt, High Fiber Activity: As Tolerated, Limited, No Heavy Lifting Call Office For: Worsening Symptoms, Fever over 101 F Discontinue use of:: Alcohol, All Illegal Substances, All Types of Tobacco - DC Summary Notes Hospital Course Note:: Discharge summary on patient named ELVIRA FISH admitted to [facility] on 11/17/16 by Sally Jackman MD. Date of discharge is []. Patient was initially brought to emergency room on November 17 for evaluation of hypotension, weakness and paleness. ED workup was undertaken patient was found profoundly anemic with hemoglobin of 4.7. Patient is admitted to monitor bed in transfused with 5 units of pooled red blood cells. After blood transfusion her hemoglobin remained stable between 10 and 11. Chest x-ray showed no active disease AICD in place heart size and vascularity were normal. Outpatient regimen for chronic medical conditions was continued. Discussion was held with GI Dr. Martinez regarding patient care and recommendation was made that patient continues to follow-up with GI at tertiary medical center. It was felt that patient had recurrent GI bleed related to small bowel angiodysplasia. She has remained hemodynamically stable after blood transfusion. Her activity level was gradually advanced and she has tolerated well by the time of discharge patient is able to ambulate short distance with walker. Renal function remained at baseline. It was felt that by November 20 patient has reached maximum benefit of inpatient therapy and in clinically stable improved condition she has been discharged home to the care of stay well Total Time: 40 mi n Code: 02299 (>30min.) - Physical Exam Vital Signs: Last Vital Signs Temp 98.2 F 11/20/16 10:58 Pulse 76 11/20/16 10:58 Resp 17 11/20/16 10:58 BP 136/68 11/20/16 10:58 Pulse Ox 97 11/20/16 10:58 Oxygen Pulse Oxygen Saturation 97 O2 Device Room Air Oxygen Flow Rate Fraction of Inspired Oxygen ( FIO2) Constitutional: Alert. negative: Well nourished, Well appearing Oriented to: Time, Person, Place - HEENT Head: Normal (normocephalic, atraumatic.), Other (No cervical lymphadenopathy. No supraclavicular lymphadenopathy. Neck: No palpable mass, supple , trachea midline.) Eye: Normal, Pale Conjunctiva Oropharynx: Normal (Pharynx: Moist without exudate,Gums-no swelling, No oropharyngeal lesions or erythema, Mucous membranes are dry.) ENT EAC: Normal Nose: No Symptoms Reported (septum midline, Nares patent, without discharge or bleeding.) - Respiratory/Cardiovascular Respiratory: Normal - CTA (Clear to auscultation bilaterally. No wheezing, rales , rhonchi. Chest wall movements are symmetric. No use of accessory muscles to breathe.), Diminished, Rhonchi Cardiovascular: Normal, Systolic murmur - GI Auscultation: Normal (normal active sounds) Palpation: Normal (Soft,non distended,nontender. No hepatosplenomegaly.) Tenderness: Non tender (No rebound or guarding) Triplett's Sign: Negative Rectal Exam: Deferred - Exam Deferred: Yes - Musculoskeletal Back: Normal (Non-Tender) Extremities: Normal (Normal tone, DP pulses 2+ bilaterally, No cyanosis or edema bilaterally, FROM bilaterally.) - Integumentary Skin: Normal, Warm, Dry Lymphatics: Normal (No cervical lymphadenopathy. No supraclavicular lymphadenopathy.) - Neurologic Memory Impaired: Normal Motor Function: Normal Cranial Nerve: Normal Cerebellar: Normal (Babinski: toes downgoing bilaterally. Intact Finger to nose. Sensory grossly intact to light touch. Intact rapid alternating movements bilaterally. No pronator drift.) Mood Description: Normal (Fully oriented. Normal and appropriate affect.), Anxious Perception: Normal (Normal and appropriate affect.) - Other Exam Other Exam Findings: Allergies morphine Allergy (Verified 11/17/16 14:26) Difficulty Breathing ondansetron HCl [From Zofran (as hydrochloride)] Allergy (Verified 11/17/16 14: ) Unknown Penicillins Allergy (Verified 11/17/16 14:) Unknown/See Comments Sulfa (Sulfonamide Antibiotics) Allergy (Verified 11/17/16 14:) Unknown sulfamethoxazole [From Bactrim] Allergy (Verified 11/17/16 14:26) Unknown/See Comments trimethoprim [From Bactrim] Allergy (Verified 11/17/16 14:) Unknown/See Comments 11/20/16 04:50 11/20/16 04:50 Abnormal Lab Results 11/20/16 11/20/16 04:50 04:50 RBC 3.49 L Hgb 10.7 L Hct 31.0 L RDW 15.7 H Lymph % (Auto) 14.5 L Tompkins % (Auto) 12.6 H Sodium 135 L BUN 44 H Creatinine 3.00 H Estimated GFR (MDRD) 16 L Calcium 7.9 L Discharge Home Medication List Sertraline HCl [Zoloft] 150 mg PO DAILY 10/28/15 [History Confirmed 11/17/16] Amlodipine [Norvasc] 10 mg PO DAILY #30 tab 01/30/16 [Rx Confirmed 11/17/16] Carvedilol [Coreg] 25 mg PO BID 05/16/16 [History Confirmed 11/17/16] Bupropion HCl [Wellbutrin] 75 mg PO DAILY 06/25/16 [History Confirmed 11/17/16] Cholecalciferol (Vitamin D3) [Vitamin D3] 2,000 unit PO DAILY 06/25/16 [History Confirmed 11/17/16] Cyanocobalamin (Vitamin B-12) [Vitamin B-12] 500 mcg SL DAILY 06/25/16 [History Confirmed 11/17/16] Haloperidol [Haldol] 0.5 mg PO TID PRN 06/25/16 [History Confirmed 11/17/16] Levothyroxine [Synthroid, Levoxyl] 100 mcg PO DAILY 06/25/16 [History Confirmed 11/17/16] Isosorbide Mononitrate [Isosorbide Mononitrate ER] 120 mg PO DAILY 07/26/16 [ History Confirmed 11/17/16] PEG-Electrolytes (Miralax) [Miralax] 17 gm PO DAILY #1 each 07/28/16 [Rx Confirmed 11/17/16] Albuterol Sulfate [Ventolin Hfa] 2 puff INH QID PRN 08/16/16 [History Confirmed 11/17/16] Atorvastatin Calcium [Lipitor] 20 mg PO QHS 08/16/16 [History Confirmed 11/17/16 ] Furosemide 20 mg PO QAM 08/16/16 [History Confirmed 11/17/16] Aspirin [Aspirin EC] 81 mg PO DAILY 08/27/16 [History Confirmed 11/17/16] Omeprazole 40 mg PO BID 08/27/16 [History Confirmed 11/17/16] Acetaminophen [Mapap] 650 mg PO Q6H PRN 10/26/16 [History Confirmed 11/17/16] Exenatide Microspheres [Bydureon Pen] 2 mg SQ WEEKLY 10/26/16 [History Confirmed 11/17/16] Divalproex Sodium [Depakote] 125 mg PO BID 11/17/16 [History Confirmed 11/17/16] Docusate-Senna Concentrate [Senokot S or Joselyn Colace] 2 each PO HS 11/17/16 [ History Confirmed 11/17/16] Ferrous Fumarate [Ferrocite] 324 mg PO DAILY 11/17/16 [History Confirmed ] Lisinopril [Prinivil] 5 mg PO DAILY 11/17/16 [History Confirmed 11/17/16] Home Medications Sertraline HCl [Zoloft] 150 mg PO DAILY 10/28/15 Amlodipine [Norvasc] 10 mg PO DAILY #30 tab 01/30/16 Carvedilol [Coreg] 25 mg PO BID 05/16/16 Bupropion HCl [Wellbutrin] 75 mg PO DAILY 06/25/16 Cholecalciferol (Vitamin D3) [Vitamin D3] 2,000 unit PO DAILY 06/25/16 Cyanocobalamin (Vitamin B-12) [Vitamin B-12] 500 mcg SL DAILY 06/25/16 Haloperidol [Haldol] 0.5 mg PO TID PRN 06/25/16 Levothyroxine [Synthroid, Levoxyl] 100 mcg PO DAILY 06/25/16 Isosorbide Mononitrate [Isosorbide Mononitrate ER] 120 mg PO DAILY 07/26/16 PEG-Electrolytes (Miralax) [Miralax] 17 gm PO DAILY #1 each 07/28/16 Albuterol Sulfate [Ventolin Hfa] 2 puff INH QID PRN 08/16/16 Atorvastatin Calcium [Lipitor] 20 mg PO QHS 08/16/16 Furosemide 20 mg PO QAM 08/16/16 Aspirin [Aspirin EC] 81 mg PO DAILY 08/27/16 Omeprazole 40 mg PO BID 08/27/16 Acetaminophen [Mapap] 650 mg PO Q6H PRN 10/26/16 Exenatide Microspheres [Bydureon Pen] 2 mg SQ WEEKLY 10/26/16 Divalproex Sodium [Depakote] 125 mg PO BID 11/17/16 Docusate-Senna Concentrate [Senokot S or Joselyn Colace] 2 each PO HS 11/17/16 Ferrous Fumarate [Ferrocite] 324 mg PO DAILY 11/17/16 Lisinopril [Prinivil] 5 mg PO DAILY 11/17/16 Microbiology 11/17/16 14:42 Urine - Clean Catch - Midstream Urine Culture - Final Mixed skin/vaginal contaminants Active Problems GI bleed (Acute) K92.2 Continue PPI. Patient will need to follow up with a tertiary medical center
== END 2016-11-20 14:54 | DRG 378 ==
LOC: ED 13:22 → PCU 17:06
PROVIDERS: ADMIT Hospitalist; ATTEND Internal Medicine
PROC: 30233N1 Transfusion of Nonautologous Red Blood Cells into Peripheral Vein, Percutaneous Approach (ICD-10-PCS; principal; 2016-11-17)
DX: K31.811 Angiodysplasia of stomach and duodenum with bleeding (principal); N17.9 Acute kidney failure, unspecified; I50.22 Chronic systolic (congestive) heart failure; D62 Acute posthemorrhagic anemia; I12.9 Hypertensive chronic kidney disease with stage 1 through stage 4 chronic kidney disease, or unspecified chronic kidney disease; N18.9 Chronic kidney disease, unspecified; E78.5 Hyperlipidemia, unspecified; Z95.810 Presence of automatic (implantable) cardiac defibrillator; Z88.5 Allergy status to narcotic agent; Z88.2 Allergy status to sulfonamides; Z88.0 Allergy status to penicillin; Z88.8 Allergy status to other drugs, medicaments and biological substances; Z79.899 Other long term (current) drug therapy
CPT/HCPCS: 36415; 36430; 71010; 80048; 80053; 81001; 82550; 82553; 82962; 83605; 84484; 85007; 85014; 85018; 85025; 85027; 85610; 85730; 86850; 86900; 86901; 86920; 87040; 87086; 93005; 97161; 97165; 99284; G0237; J0360; J1200; J1940; J3490; P9016